=== PATIENT | male | born 1940 | race Caucasian/White ===

== ENCOUNTER 2017-08-07 10:13 | Outpatient (CLI) | payer MEDICARE, OTHER ==
[2017-08-07 17:40] LABS: BASOPHILS # (AUTO) 0.1 10^3/uL (0.0-0.1); BASOPHILS % (AUTO) 1.2 %; EOSINOPHILS # (AUTO) 0.2 10^3/uL (0.0-0.7); EOSINOPHILS % (AUTO) 2.9 %; HGB - HEMOGLOBIN 15.9 g/dL (14.0-18.0); LYMPHOCYTES # (AUTO) 1.8 10^3/uL (1.5-3.5); LYMPHOCYTES % (AUTO) 30.9 %; MEAN CORPUSCULAR HEMOGLOBIN 32.9 pg (27.0-31.0); MEAN CORPUSCULAR HGB CONC 33.5 g/dL (32.0-36.0); MEAN CORPUSCULAR VOLUME 98.3 fL (80.0-94.0); MEAN PLATELET VOLUME 8.9 fL (7.4-11.4); MONOCYTES # (AUTO) 0.6 10^3/uL (0.0-1.0); MONOCYTES % (AUTO) 10.5 %; NEUTROPHILS # (AUTO) 3.2 10^3/uL (1.5-6.6); NEUTROPHILS % (AUTO) 54.5 %; PLT - PLATELET COUNT 258 10^3/uL (130-450); RED BLOOD COUNT 4.84 10^6/uL (4.70-6.10); RED CELL DISTRIBUTION WIDTH 13.6 % (12.0-15.0); WHITE BLOOD COUNT 5.9 x10^3/uL (4.8-10.8)
[2017-08-07 18:11] LABS: ALBUMIN 4.3 g/dL (3.2-5.5); ALBUMIN/GLOBULIN RATIO 1.5 (1.0-2.2); ALKALINE PHOSPHATASE 41 IU/L (42-121); ALT ALANINE AMINOTRANSFERASE 20 IU/L (10-60); AST ASPARTATE AMINOTRANSFERASE 21 IU/L (10-42); BUN - BLOOD UREA NITROGEN 11 mg/dL (6-20); CALCIUM 9.6 mg/dL (8.5-10.3); CARBON DIOXIDE - CO2 25 mmol/L (21-32); CHLORIDE 98 mmol/L (101-111); CHOL/HDL RATIO 4.1 (<5.0); CHOLESTEROL 243 mg/dL; CREATININE 0.9 mg/dL (0.6-1.2); GFR - MDRD 82 (>89); GLUCOSE 102 mg/dL (70-100); HDL CHOLESTEROL 59 mg/dL; LDL CHOLESTEROL,CALCULATED 162 mg/dL; LDL/HDL RATIO 2.7 (<3.6); SODIUM 134 mmol/L (135-145); TOTAL PROTEIN 7.2 g/dL (6.7-8.2); VLDL CHOLESTEROL 22 mg/dL
== END 2017-08-07 10:14 | disposition home or self-care (01) ==
LOC: LAB.F 10:13
PROVIDERS: ATTEND Physician Assistant Medical
DX: I10 Essential (primary) hypertension (principal); Z12.5 Encounter for screening for malignant neoplasm of prostate; E78.5 Hyperlipidemia, unspecified
CPT/HCPCS: 36415; 80053; 80061; 84443; 85025; G0103; 83721; 84153

== ENCOUNTER 2018-02-27 14:02 | Outpatient (CLI) | payer MEDICARE, OTHER ==
[2018-02-27 17:35] LABS: CALCIUM 9.3 mg/dL (8.5-10.3); CREATININE 0.9 mg/dL (0.6-1.2)
== END 2018-02-27 14:03 | disposition home or self-care (01) ==
LOC: LAB.F 14:02
PROVIDERS: ATTEND Internal Medicine
DX: I10 Essential (primary) hypertension (principal)
CPT/HCPCS: 36415; 80048

== ENCOUNTER 2021-05-02 08:00 | Outpatient (CLI) | payer MEDICARE, OTHER | END 2021-05-02 23:59 | disposition home or self-care (01) | LOC: LAB 08:00 | PROVIDERS: ATTEND Registered Nurse | DX: R30.0 Dysuria (principal) | CPT/HCPCS: 87086 ==

== ENCOUNTER 2021-08-10 08:00 | Outpatient (CLI) | payer MEDICARE, OTHER ==
[2021-08-10 20:12] LABS: BILIRUBIN,URINE NEGATIVE (NEGATIVE); GLUCOSE, URINE (UA) NEGATIVE (NEGATIVE); KETONES,URINE (UA) NEGATIVE (NEGATIVE); LEUKOCYTE ESTERASE, URINE NEGATIVE (NEGATIVE); NITRITE,URINE NEGATIVE (NEGATIVE); OCCULT BLOOD,URINE NEGATIVE (NEGATIVE); PROTEIN,URINE NEGATIVE (NEGATIVE); UROBILINOGEN,URINE 0.2 (NORMAL) E.U./dL (NORMAL)
[2021-08-10 20:13] LABS: CLARITY,URINE CLEAR (CLEAR)
[2021-08-10 20:50] LABS: BACTERIA,URINE None Seen /HPF (None Seen); RBC,URINE 0-5 /HPF (0-5); SQUAMOUS EPITHELIAL CELL,UR NONE SEEN (<= Few); WBC,URINE 0-3 /HPF (0-3)
== END 2021-08-10 23:59 ==
LOC: LAB 08:00
PROVIDERS: ATTEND Physician Assistant Medical
DX: R30.0 Dysuria (principal)
CPT/HCPCS: 81001; 87086

== ENCOUNTER 2021-10-04 08:00 | Outpatient (CLI) | payer MEDICARE, OTHER | END 2021-10-04 23:59 | LOC: LAB.S 08:00 | PROVIDERS: ATTEND Registered Nurse | DX: C61 Malignant neoplasm of prostate (principal); R31.9 Hematuria, unspecified; R30.0 Dysuria | CPT/HCPCS: 87086 ==

== ENCOUNTER 2021-10-20 18:15 | Emergency (ER) | payer MEDICARE, OTHER ==
[2021-10-20 18:22] VITALS: BP 180/90
[2021-10-20] MEDS ORDERED: TAMSULOSIN 0.4 MG CAPSULE PO STA (20:18)
--- NOTE | 2021-10-20 20:19 | ED Physician Documentation ---
PD HPI MALE - Stated complaint Stated Complaint: POST OP/UNABLE TO URINATE - Chief complaint Chief Complaint: Abd Pain - History obtained from History obtained from: Patient - Additional information Additional information: Patient with a history significant for bladder cancer presenting for evaluation of unable to urinate for the last 7 hours. Patient had surgery in [place] this morning for biopsies of tumors in his bladder. He was able to void after the surgery but has not been able to void in the last 6 to 7 hours. He has discomfort over the bladder. Nothing makes it better. He has had blood in his urine Which is not new. He denies fever, nausea, vomiting, Flank pain. He does not take a blood thinner. Review of Systems Constitutional: denies: Fever Nose: denies: Congestion Cardiac: denies: Chest pain / pressure Respiratory: denies: Dyspnea, Cough GI: denies: Nausea, Vomiting, Diarrhea : reports: Unable to Void, Hematuria Musculoskeletal: denies: Back pain Neurologic: denies: Generalized weakness PD PAST MEDICAL HISTORY - Present Medications Home Medications: Ambulatory Orders Medication Instructions Recorded Confirmed Tamsulosin [Flomax] 0.4 mg PO DAILY #14 cap 10/20/21 - Allergies Allergies/Adverse Reactions: Allergies Allergy/AdvReac Type Severity Reaction Status Date / Time ezetimibe [From Zetia] Allergy Emesis Verified 10/20/21 18:19 tamsulosin [From Flomax] Allergy Respiratory Verified 10/20/21 18:19 PD ED PE NORMAL - General General: Alert and oriented X 3, Well developed/nourished, Other (Appears mildly uncomfortable) - HEENT HEENT: Atraumatic, Moist mucous membranes - Neck Neck: Supple, no meningeal sign - Cardiac Cardiac: RRR, No murmur, Strong equal pulses - Respiratory Respiratory: No respiratory distress, Clear bilaterally - Abdomen Abdomen: Normal bowel sounds, Soft, Other (Suprapubic tenderness) - Back Back: No CVA TTP - Extremities Extremities: No deformity, No edema - Neuro Neuro: Alert and oriented X 3, No motor deficit, Normal speech - Psych Psych: Normal mood, Normal affect Results - Vitals Vitals: Vital Signs - 24 hr 10/20/21 18:19 Temperature 36.5 C Heart Rate 95 Respiratory 18 Rate Blood Pressure 180/90 H O2 Saturation 96 Oxygen O2 Source Room air PD MEDICAL DECISION MAKING - ED course Complexity details: re-evaluated patient, d/w patient ED course: 2017 - Stewart catheter inserted with Dark blood-tinged urine In bag,Patient is feeling much better and has relief of his symptoms. Very appreciative for care. Patient is willing to try Flomax although in the past he says it gave him bad sinus congestion.Denies other reaction to Flomax.Aware he will need to follow-up with his urologist in the next weekFor Stewart removal. Patient seen for inability to void with acute Urinary retention after having had surgery with general anesthesia this morning. Patient does have bladder cancer and has been having hematuria related to this. He does not take a blood thinner. A Stewart catheter was placed without difficulty with drainage of his bladder. There were no clots in the bag. Patient was counseled on Stewart care. He has reported having issues with Flomax in the past but is willing to take it. He was advised on return precautions and need for follow-up with his urologist. Departure - Departure Disposition: 01 Home, Self Care Clinical Impression: Acute urinary retention Hematuria Qualifiers: Hematuria type: unspecified type Qualified Code(s): R31.9 - Hematuria, unspecified Condition: Stable Instructions: ED Catheter Care Stewart, ED Retention Urinary Male Prescriptions: Tamsulosin [Flomax] 0.4 mg PO DAILY #14 cap Comments: You were evaluated for Difficulty urinating. A Stewart catheter was placed and now your bladder is draining. You should Follow-up with your urologist, Dr. Malone in the next week For Stewart catheter removal. If it anytime your Stewart catheter is not draining, You have pain over the bladder, nausea, vomiting or fever or you notice worsening blood, return to the emergency department.I have prescribed Flomax for you to try again although I understand you have hadSinus issues related to taking this medication in the past. I have sent a prescription to [facility] in [place]. Discharge Date/Time: 10/20/21 20:40
== END 2021-10-20 20:40 | disposition home or self-care (01) ==
LOC: ED 18:15
DX: R33.9 Retention of urine, unspecified (principal); Z98.890 Other specified postprocedural states
CPT/HCPCS: 51702; 99283; 99284; A9270

== ENCOUNTER 2021-10-28 18:13 | Outpatient (CLI) | payer MEDICARE, OTHER | END 2021-10-28 18:14 | disposition left against medical advice (07) | LOC: EMS 18:13 | DX: R39.89 Other symptoms and signs involving the genitourinary system (principal) ==

== ENCOUNTER 2022-07-19 12:33 | Outpatient (CLI) | payer MEDICARE, OTHER ==
[2022-07-19 14:25] LABS: BASOPHILS # (AUTO) 0.1 10^3/uL (0.0-0.1); BASOPHILS % (AUTO) 1.1 %; EOSINOPHILS # (AUTO) 0.2 10^3/uL (0.0-0.7); EOSINOPHILS % (AUTO) 2.4 %; HCT - HEMATOCRIT 46.8 % (42.0-52.0); HGB - HEMOGLOBIN 15.4 g/dL (14.0-18.0); LYMPHOCYTES # (AUTO) 1.5 10^3/uL (1.5-3.5); LYMPHOCYTES % (AUTO) 21.1 %; MEAN CORPUSCULAR HEMOGLOBIN 31.4 pg (27.0-31.0); MEAN CORPUSCULAR HGB CONC 32.9 g/dL (32.0-36.0); MEAN CORPUSCULAR VOLUME 95.3 fL (80.0-94.0); MEAN PLATELET VOLUME 10.8 fL (7.4-11.4); MONOCYTES # (AUTO) 0.9 10^3/uL (0.0-1.0); MONOCYTES % (AUTO) 12.5 %; NEUTROPHILS # (AUTO) 4.5 10^3/uL (1.5-6.6); NEUTROPHILS % (AUTO) 62.6 %; PLT - PLATELET COUNT 230 10^3/uL (130-450); RED BLOOD COUNT 4.91 10^6/uL (4.70-6.10); RED CELL DISTRIBUTION WIDTH 13.2 % (12.0-15.0); WHITE BLOOD COUNT 7.2 x10^3/uL (4.8-10.8)
[2022-07-19 14:28] LABS: INR 1.1 (0.8-1.2)
[2022-07-19 15:26] LABS: CALCIUM 9.6 mg/dL (8.5-10.3); CREATININE 0.9 mg/dL (0.6-1.2); PARTIAL THROMBOPLASTIN TIME 24.8 secs (24.9-33.3); POTASSIUM 4.4 mmol/L (3.5-5.0)
== END 2022-07-19 12:34 | disposition home or self-care (01) ==
LOC: LAB.S 12:33
PROVIDERS: ATTEND Urology
DX: N30.41 Irradiation cystitis with hematuria (principal); R31.0 Gross hematuria
CPT/HCPCS: 36415; 80048; 85025; 85610; 85730

== ENCOUNTER 2022-07-25 07:45 | Outpatient (CLI) | payer MEDICARE, OTHER | END 2022-07-25 07:46 | disposition EMS.NT | LOC: EMS 07:45 | DX: R33.9 Retention of urine, unspecified (principal) ==

== ENCOUNTER 2022-07-25 08:45 | Emergency (ER) | payer MEDICARE, OTHER ==
--- OUTSIDE RECORDS SUMMARY | 2022-07-25 09:32 | EXTERNAL MEDICAL SUMMARY RPT | Continuity of Care Document ---
:1940 Author Organization [facility] Address [address] [place] [address] Phone Care Team Providers Name Role Phone Unavailable Unavailable Unavailable Ludivina Day Unavailable Unavailable Allergies No information. Encounters No information. Functional Status No information. Immunizations No information. Medications date description facility 2022-05-30 00:00 t[facility]ulosin [facility] 2022-05-31 00:00 tamsulosin [facility] 2022-05-30 00:00 tamsulosin [facility] 2022-05-31 00:00 tamsulosin [facility] 2022-05-30 00:00 tamsulosin [facility] 2022-05-31 00:00 tamsulosin [facility] 2022-05-30 00:00 tamsulosin [facility] 2022-05-31 00:00 tamsulosin [facility] Problems No information. Procedures date description facility 2022-05-30 00:00 Visit Code Hold [facility] [place] Results/Labs No information. Social History date description facility 2022-05-30 00:00 Former smoker [facility] [place] Vital Signs date measurement value units 2022-05-30 00:00 BMI 28.25 kg/m2 2022-05-30 00:00 BP_diastolic 87 mmHg 2022-05-30 00:00 BP_systolic 157 mmHg 2022-05-30 00:00 heart_rate 57 /min 2022-05-30 00:00 height_metric 179.07 cm 2022-05-30 00:00 height_standard 70.5 in 2022-05-30 00:00 respiration_rate 16 /min 2022-05-30 00:00 temperature_metric 36 C 2022-05-30 00:00 temperature_standard 96.8 F 2022-05-30 00:00 weight_metric 90.26 kg 2022-05-30 00:00 weight_standard 199 lb
[2022-07-25] MEDS ORDERED: LIDOCAINE 2% URO-JET 5 ML SYRINGE UR STA ×2 (09:43→11:11)
[2022-07-25] MEDS ORDERED: LIDOCAINE 1%-EPI 1:100000 20 ML MDV SUBQ STA (11:24)
--- NOTE | 2022-07-25 11:45 | ED Physician Documentation ---
ED Addendum - Addendum Addendum: 07/25/22 11:[address] a Stewart again, tried with both 14 [place] coud and regular Stewart catheters without success. Subsequently patient consented for suprapubic aspiration. After written informed consent was obtained he was prepped with ChloraPrep. The bladder was marked using bedside ultrasound and then an 18-gauge Angiocath was placed into the bladder after lidocaine local anesthetic which was draining urine well.
--- NOTE | 2022-07-25 12:04 | ED Physician Documentation ---
History of Present Illness - Stated complaint Stated Complaint: MALE - Chief complaint Chief Complaint: Abd Pain - History obtained from History obtained from: Patient - Additonal information Additional information: The patient comes to the emergency department with chief complaint of urinary retention for about the last 18 hours. He states that he has a history of bladder cancer and prostatic hypertrophy and went to his urologist Dr. Navas in [place] yesterday to have a cystoscopy done. He had not been able to self cath that day, as the catheter seemed to be unable to pass. At the urology office, they tried to do the cystoscopy and were also unable to pass the scope. The patient was discharged home and since then, has not been able to urinate spontaneously or passed the catheter. He states that he is in extreme discomfort and that is why he is come here. No fevers or chills. No nausea vomiting. No other complaints at this time. Review of Systems Constitutional: reports: Reviewed and negative Eyes: reports: Reviewed and negative Ears: reports: Reviewed and negative Nose: reports: Reviewed and negative Throat: reports: Reviewed and negative Cardiac: reports: Reviewed and negative Respiratory: reports: Reviewed and negative GI: reports: Abdominal Pain : reports: Other (Urinary retention) Skin: reports: Reviewed and negative Musculoskeletal: reports: Reviewed and negative Neurologic: reports: Reviewed and negative Psychiatric: reports: Reviewed and negative Endocrine: reports: Reviewed and negative Immunocompromised: reports: Reviewed and negative PD PAST MEDICAL HISTORY - Past Medical History : Benign prostate hypertrophy, Retention, Indwelling catheter - Present Medications Home Medications: Ambulatory Orders Medication Instructions Recorded Confirmed Tamsulosin [Flomax] 0.4 mg PO DAILY #14 cap 10/20/21 - Allergies Allergies/Adverse Reactions: Allergies Allergy/AdvReac Type Severity Reaction Status Date / Time ezetimibe [From Zetia] Allergy Emesis Verified 07/25/22 09:13 tamsulosin [From Flomax] Allergy Respiratory Verified 07/25/22 09:13 - Social History Does the pt smoke?: No Smoking Status: Never smoker Does the pt drink ETOH?: No Does the pt have substance abuse?: No - Immunizations Immunizations are current?: Yes - POLST Patient has POLST: No PD ED PE NORMAL - Vitals Vital signs reviewed: Yes - General General: Alert and oriented X 3, No acute distress, Well developed/nourished - HEENT HEENT: Atraumatic, PERRL, EOMI, Moist mucous membranes - Neck Neck: Supple, no meningeal sign - Respiratory Respiratory: No respiratory distress - Abdomen Abdomen: Soft, Non distended, Other (Marked discomfort between the suprapubic area and umbilicus.) - Back Back: No CVA TTP - Derm Derm: Normal color, Warm and dry, No rash - Extremities Extremities: No deformity, No edema - Neuro Neuro: Alert and oriented X 3, carbide operator 2-12 intact, Normal speech - Psych Psych: Normal mood, Normal affect Results - Vitals Vitals: Vital Signs - 24 hr 07/25/22 07/25/22 09:10 11:46 Temperature 35.9 C L Heart Rate 120 H 72 Respiratory 16 18 Rate Blood Pressure 209/110 H 134/69 H O2 Saturation 97 95 Oxygen O2 Source Room air PD Medical Decision Making - ED course Complexity details: considered differential, d/w patient ED course: Patient was found to have approximately a liter of urine in his bladder on scan. Nursing staff did attempt multiple times to pass a coud catheter but we are unable to do so. My partner Dr. Evans did also attempt to pass a catheter, but was Also unable to do this. The patient's urology PA, Ms. Areli Davis, who works with Dr. Navas, had called and recommended that the patient have a suprapubic aspiration and then come straight to the clinic from here. She recommended against a suprapubic catheter being left in, due to the patient's bladder cancer history, and we do not have any kits here anyway. As Dr. Evans was already with the patient attempting the Stewart passage, he did go ahead and just do an ultrasound-guided aspiration. Please see his procedure note for further details. The patient understands that he is to go straight to urology clinic after this and is willing to make this trek by private vehicle. Departure - Departure Disposition: 01 Home, Self Care Clinical Impression: Urinary retention, History of bladder cancer Condition: Stable Instructions: ED Retention Urinary Male Comments: Your case has been discussed with Ms. Areli Davis, the PA for Dr. Navas, your urologist. They requested that a urinary aspiration be done here in the emergency department and that you then Be directed to go immediately to their clinic in [place]. They will be waiting to see you there. Please do not delay, as the clinic closes around 5:00.
[2022-07-25 12:55] VITALS: BP 121/65
--- NOTE | 2022-07-25 16:12 | ED Physician Documentation ---
ED Addendum - Addendum Addendum: 07/25/22 16:08 I received a call from the emergency physician at [facility] at 1600, stating that he was wondering why we had sent the patient to their emergency department. I was very clear with the emergency physician that the patient was not sent from our emergency department to theirs but rather, that the patient had been instructed to go to the urology clinic, as per the very specific instructions of the urology PA Areli Davis. At no time was there any instruction or intent that the patient should go to the [facility] emergency department after discharge from our ED. The patient was very specifically instructed to go to clinic, not the emergency department. The emergency physician from [facility] has stated that he received a call from the urology resident, stating that the patient was going to come to the ED. I have again reiterated that neither I nor our emergency department had any part in this decision, and that our instructions from urology and our instructions to the patient were very specific about the patient going to the clinic, not to the ED.
== END 2022-07-25 13:10 | disposition home or self-care (01) ==
LOC: ED 08:45
DX: R33.9 Retention of urine, unspecified (principal); C67.9 Malignant neoplasm of bladder, unspecified
CPT/HCPCS: 51702; 99281; 99284